=== PATIENT | female | born 1985 | race Two or more races ===

== ENCOUNTER 2019-09-29 10:13 | Emergency (ER) | payer SELFPAY ==
[~2019-09-29] VITALS: Ht 162.6 cm; Wt 59.0 kg
[2019-09-29 09:59] VITALS: BP 104/56
--- NOTE | 2019-09-29 10:09 | NUR ---
ED Nurse Note: pt. aaox4. ambulatory. pt. walked in to er from the street. per pt., she was holding her bm 2 days ago and when she sat on the toilet she had pain and noted some blood tinged and had a fever at the same time. pt. denies being constipated.
[2019-09-29] MEDS ORDERED: MIRALAX17 G2 ORAL (10:22)
--- NOTE | 2019-09-29 10:22 | Emergency Room Report ---
History of Present Illness General Chief Complaint: Fever Source: Patient Present Illness HPI 34-year-old female presents with some rectal bleeding after a large defecation, patient states that she has been holding her feces in due to the fact that she could not find a public restroom, she endorsed a little bit of rectal pain with some blood-streaked stool she was worried that she was after this, pain in the rectal area is aggravated by large stools, no alleviating factors severity is mild, lasting a moment, has since resolved. Allergies: Coded Allergies: CODEINE (Verified Allergy, Unknown, 09/29/19) COVID-19 Screening Contact w/high risk pt: No Recent Travel to affected area: No Experienced COVID-19 symptoms?: No Patient History Social History: Reports: smoking Last Menstrual Period: a month ago Reviewed Nursing Documentation: PMH: Agreed; PSxH: Agreed Nursing Documentation-PMH Past Medical History: No Stated History Review of Systems All Other Systems: negative except mentioned in HPI Physical Exam Vital Signs Date Time Temp Pulse Resp B/P (MAP) Pulse Ox O2 Delivery O2 Flow Rate FiO2 09/29/19 09:59 93 22 Room Air 09/29/19 09:59 97.9 104/56 (72) 97 General Appearance: well appearing, no apparent distress Head: normocephalic, atraumatic ENT: hearing grossly normal, normal voice Neck: full range of motion, supple Respiratory: no respiratory distress, speaking full sentences Neurologic: alert, normal gait Psychiatric: mood/affect normal Skin: no rash Medical Decision Making Diagnostic Impression: Primary Impression: Anal tear ER Course 34-year-old female presents with most likely a rectal tear after a large defecation, counseled patient that she is not as a result of her having some constipation she states she also had her period recently counseled patient that if you are still having periods you are most likely not , patient then stated that she wants a dose of pain medication, offered patient a bowel regimen Patient also reported a fever and passing she denies any shortness of breath chest pain currently afebrile here Disposition home with return precautions follow-up with PCP Last Vital Signs Date Time Temp Pulse Resp B/P (MAP) Pulse Ox O2 Delivery O2 Flow Rate FiO2 09/29/19 09:59 97.9 93 22 104/56 97 Room Air Disposition: HOME, SELF-CARE Condition: Stable Scripts Polyethylene Glycol 3350* (MIRALAX*) 17 Gm Powd.pack 17 GM ORAL DAILY, #14 PACKET Prov: Darrel Stevens MD 09/29/19 Referrals: [facility] Patient Instructions: Constipation, Adult, [id number] Additional Instructions: The patient was provided with discharge instructions, notified to follow-up with a primary care doctor and or specialist in the next 24-48 hours, and to return to the ED if they have worsening of their symptoms. Please note that this report is being documented using [employer] technology. This can lead to erroneous entry secondary to incorrect interpretation by the dictating instrument. Darrel Stevens MD Sep 29, 2019 10:22
[2019-09-29 10:30] VITALS: BP 104/56
[2019-09-29] MEDS ORDERED: Acetaminophen 500mg (ES) tab ORAL ONE (10:30)
--- NOTE | 2019-09-29 10:30 | NUR ---
ER DISCHARGE NOTE: Patient is cleared to be discharged per ERMD, pt is aox4, on room air, with stable vital signs. pt was given dc and prescription instructions, pt was able to verbalize understanding, pt id band removed. pt is able to ambulate with steady gait. pt took all belongings.
== END 2019-09-29 10:30 | disposition home or self-care (01) ==
LOC: EMR 10:25
DX: S31.831A Laceration without foreign body of anus, initial encounter (principal); X58.XXXA Exposure to other specified factors, initial encounter; Y92.9 Unspecified place or not applicable; F17.200 Nicotine dependence, unspecified, uncomplicated; Z88.6 Allergy status to analgesic agent
CPT/HCPCS: 99281